=== PATIENT | male | born 1985 | race Caucasian/White ===

== ENCOUNTER 2018-12-27 13:47 | Emergency (ER) | payer BC ==
[2018-12-27 13:53] VITALS: BP 106/70
--- NOTE | 2018-12-27 14:07 | EDPHY ---
HPI/HX/ROS/PE/MDM Narrative: CHIEF COMPLAINT: Lip laceration HPI: This patient is a healthy 33 year old male. He was playing basketball this afternoon and accidentally collided with another player whose skull impacted the patient's mouth. He sustained a laceration to his left lower lip. He denies any other trauma. No tooth malocclusion. He did not bite his tongue. He denies any other head/facial trauma, no loss of consciousness. He feels well currently apart from pain at the injury site. REVIEW OF SYSTEMS: A comprehensive 10 system review of systems is otherwise negative aside from elements mentioned in the history of present illness and medical decision making. PMH: Denies SOCIAL HISTORY: Employed, works in software. . Lives in [place]. PHYSICAL EXAM: General:Patient is alert, in no acute distress. ENT:Eyes are normal to inspection. ENT inspection normal. Well-approximated 0.5 cm linear laceration to lower lip. Skin: Normal color. No rash. Warm and dry. Neuro: Oriented x3. No focal deficits. ED Course: 33 y/o male presents with a well-approximated 0.5 cm linear laceration to lower lip. Discussed suture placement. The wound is very well-approximated and I do not recommend suture placement at this time. The patient agrees to forgo suture placement. Plan to discharge home in good condition. Follow up and return precautions discussed. The patient is comfortable with this plan. General Time Seen by Provider: 12/27/18 14:01 Initial Vital Signs: Initial Vital Signs Heart Rate 94 12/27/18 13:51 Respiratory Rate 16 12/27/18 13:51 Blood Pressure 106/70 12/27/18 13:51 O2 Sat (%) 97 12/27/18 13:51 O2 Delivery Mode Room Air Allergies/Adverse Reactions: No Known Allergies Allergy (Unverified 12/27/18 13:51) Home Medications: Medication Instructions Recorded NK [No Known Home Meds] 12/27/18 Departure - Departure Disposition: Home, Routine, Self-Care Clinical Impression: Laceration Condition: Good Instructions: Laceration (ED), Facial Laceration (ED) Additional Instructions: Ice for comfort. Avoid small foods which may get into the laceration. Clean gently with water. For recurrent bleeding, hold pressure on the wound. Return to the Emergency Department for fever, redness, discharge from wound, increasing pain or other worsening of condition. Referrals: SAPPHIRE CORMIER MD [Primary Care Provider] - As per Instructions Report Scribed for: Claude Lee Report Scribed by: La Sheth Date of Report: 12/27/18 Time of Report: 14:12 Physician Review and Approval Statement: Portions of this note were transcribed by an ED scribe. I personally performed the history, physical exam, and medical decision making; and confirm the accuracy of the information in the transcribed note.
== END 2018-12-27 14:16 | disposition home or self-care (01) ==
DX: S01.511A Laceration without foreign body of lip, initial encounter (principal); W50.0XXA Accidental hit or strike by another person, initial encounter; Y93.67 Activity, basketball; Y92.310 Basketball court as the place of occurrence of the external cause